=== PATIENT | female | born 1980 ===

== ENCOUNTER 2025-01-17 15:34 | Outpatient (CLI) | payer OTHER, SELFPAY ==
--- NOTE | 2025-01-17 15:07 | DI.RAD_ITS ---
Exam(s) XR KNEE LT 2V AP,LAT EXAM: XR KNEE LT 2V AP,LAT CLINICAL HISTORY: LEFT KNEE PAIN. TECHNIQUE: 2D digital imaging was performed. COMPARISON: No exams were available for comparison FINDINGS: Two views No evidence of fracture or obvious joint effusion. No joint space narrowing. No osteophytes. Bone density is normal. There are no osseous lesions. IMPRESSION: No significant radiograph findings on these two views of the left knee. DATA REPOSITORY: RADIATION DOSE DELIVERED:
== END 2025-01-17 15:35 | disposition home or self-care (01) ==
LOC: DIORS 15:35
PROVIDERS: PCP Registered Nurse; Visit Provider Student in an Organized Health Care Education/Training Program
DX: M25.562 Pain in left knee (principal)
CPT/HCPCS: 73560

== ENCOUNTER 2025-03-14 11:15 | Outpatient (CLI) | payer OTHER, SELFPAY ==
--- NOTE | 2025-03-14 10:15 | DI.RAD_ITS ---
Exam(s) XR KNEE LT 2V AP,LAT EXAM: XR KNEE LT 2V AP,LAT CLINICAL HISTORY: F/U FRACTURE. TECHNIQUE: 2D digital imaging was performed. Three views. COMPARISON: CR XR KNEE COMPLETE MIN 4V LT from 12/08/2024 MR MR KNEE LT WO CONTRAST from 01/11/2025 CR XR KNEE LT 2V AP,LAT from 01/17/2025 FINDINGS: BONES: Stable alignment of proximal fibular fracture. No new abnormalities.. No bony destructive l esion is seen. JOINTS: The knee is normally aligned. No joint effusion is seen. SOFT TISSUE: Normal. IMPRESSION: Stable fracture alignment. DATA REPOSITORY: RADIATION DOSE DELIVERED:
== END 2025-03-14 11:16 | disposition home or self-care (01) ==
LOC: DIORS 11:15
PROVIDERS: PCP Registered Nurse; Visit Provider Student in an Organized Health Care Education/Training Program
DX: S82.832D Other fracture of upper and lower end of left fibula, subsequent encounter for closed fracture with routine healing (principal); X58.XXXD Exposure to other specified factors, subsequent encounter
CPT/HCPCS: 73560

== ENCOUNTER 2025-08-08 14:50 | Outpatient (CLI) | payer OTHER, SELFPAY ==
--- NOTE | 2025-08-08 13:15 | DI.RAD_ITS ---
Exam(s) XR SHOULDER LT COMPLETE 2+V EXAM: XR SHOULDER LT COMPLETE 2+V CLINICAL HISTORY: LEFT SHOULDER PAIN. TECHNIQUE: 2D digital imaging was performed. Two views. COMPARISON: No exams were available for comparison FINDINGS: BONES: No acute fracture is present. No bony destructive lesion is seen. JOINTS: No dislocation present. Glenohumeral joint space is maintained. No significant periarticular spurring. AC joint also shows no significant spurring. SOFT TISSUE: Normal. IMPRESSION: Unremarkable radiographs of the left shoulder. DATA REPOSITORY: RADIATION DOSE DELIVERED:
== END 2025-08-08 14:51 | disposition home or self-care (01) ==
LOC: DIORS 14:51
PROVIDERS: PCP Registered Nurse; Visit Provider Student in an Organized Health Care Education/Training Program
DX: M25.512 Pain in left shoulder (principal)
CPT/HCPCS: 73030

== ENCOUNTER 2025-09-08 03:19 | Outpatient (CLI) | payer OTHER, SELFPAY ==
--- NOTE | 2025-09-08 12:45 | DI.MRI_ITS ---
Exam(s) MR UPPER JOINT LT WO EXAM: MR UPPER JOINT LT WO CLINICAL HISTORY: L SHOULDER PAIN,INJURY OF LT AC JOINT,S49.92XA. TECHNIQUE: Multiplanar multisequence MRI was performed. COMPARISON: CR XR SHOULDER LT COMPLETE 2+V from 08/08/2025 FINDINGS: BONES: There is no fracture or contusion pattern. JOINTS: There are mild degenerative changes seen at the acromioclavicular joint. There is no evidence of a fracture. There is mild edema seen around the AC joint and ligament sprain may be considered. The glenohumeral joint is normal. TENDONS: Supraspinatus: Unremarkable. Infraspinatus: Unremarkable. Subscapularis: Unremarkable. Teres Minor: Unremarkable. Biceps and [place]: Unremarkable. MUSCLES: Unremarkable. GLENOID LABRUM: Unremarkable on this noncontrast examination. SOFT TISSUES: Unremarkable. LIGAMENTS: Unremarkable. OTHER: Subacromial and subdeltoid bursae are unremarkable. IMPRESSION: 1. There is no evidence of a rotator cuff or labral tear on this noncontrast examination. 2. Mild edema seen in and around the AC joint. The ligament appears intact but sprain may be considered. DATA REPOSITORY:
== END 2025-09-08 03:39 ==
LOC: DI 03:19
PROVIDERS: PCP Registered Nurse; Visit Provider Student in an Organized Health Care Education/Training Program
DX: S49.92XA Unspecified injury of left shoulder and upper arm, initial encounter (principal); M19.012 Primary osteoarthritis, left shoulder
CPT/HCPCS: 73221

== ENCOUNTER → 2025-10-11 01:23 | Outpatient (CLI) | payer OTHER, SELFPAY ==
--- NOTE | 2025-10-11 07:00 | DI.MRI_ITS ---
Exam(s) MR LOWER JOINT LT WO EXAM: MR LOWER JOINT LT WO CLINICAL HISTORY: L KNEE PAIN,SPRAIN ANT CRUCIATE LIGAMENT,FX PROX FIBULA TECHNIQUE: Multiplanar multisequence MRI of the knee was performed. COMPARISON: CR XR KNEE COMPLETE MIN 4V LT from 12/08/2024 MR MR KNEE LT WO CONTRAST from 01/11/2025 CR XR KNEE LT 2V AP,LAT from 01/17/2025 CR XR KNEE LT 2V AP,LAT from 03/14/2025 FINDINGS: EFFUSION: There is small amount of increased joint fluid. There is no Acuña cyst in the popliteal fossa and there are no loose intra-articular bodies evident. MARROW:No evidence of fracture or bone contusion. There has been complete healing of the previously present comminuted fracture in the fibular head and neck seen on the MRI scan of December 2024. The fibular styloid is intact. PATELLOFEMORAL COMPARTMENT: The quadriceps tendon is intact. The patellar ligament is intact. Allowing for the amount of motion artifact, there is no significant thinning of the retropatellar cartilage. No significant chondromalacia at this level and no abnormal intraosseous signal evident in the patella.,There is no intraosseous signal to suggest recent patellar dislocation. There are no patellar retinacular tears. CRUCIATE LIGAMENTS: There is some signal abnormality in the more posterior of the 2 fascicles of the ACL and either related to some partial tearing or degenerative change. The more anterior of the 2 fascicles of the ACL is intact.There is mild signal abnormality in the most superior aspect of the post erior cruciate ligament at its attachment to the inner aspect of the medial femoral condyle, however, there is no high-grade tear of this structure. MEDIAL COMPARTMENT/MEDIAL MENISCUS: There are no tears of the medial meniscus evident.. There are no chondral defects, osteochondral defects, subarticular marrow edema, nor osteophytes evident. MEDIAL COLLATERAL LIGAMENT: There is a single tiny focus of fluid signal between the 2 layers of the medial collateral ligament possibly indicating sprain signal.. However, there is no high-grade tear of this structure. Also no tear of the medial patellar retinaculum. LATERAL COMPARTMENT/LATERAL MENISCUS: There is no evidence of lateral meniscal tear.There are no chondral defects, osteochondral defects, subarticular marrow edema, nor osteophytes evident. ILIOTIBIAL BAND: Intact LATERAL COLLATERAL LIGAMENT COMPLEX: The fibular collateral ligament is intact. The biceps femoris tendon is intact.Popliteus muscle and tendon are intact. There is no significant abnormal signal at the attachment of the biceps femoris tendon and fibular collateral ligament to the previously fractured fibular head. IMPRESSION: 1. Compared to the prior outside MRI scan of 01/11/2025 there has been complete healing of the previously described comminuted but nondisplaced fracture of the fibular head and neck. There is no significant signal abnormality at the attachment of the biceps femora wrists tendon and fibular collateral ligament components of the lateral collateral ligament complex which insert at this level on the fibular head styloid. 2. There are no meniscal tears evident. 3. Sprain signal is again noted in the anterior cruciate ligament predominately involving the more posterior of the 2 fascicles of this structure. There is no full-thickness tear of the ACL. There is also mild sprain signal noted in the superior aspect of the posterior cruciate ligament but no high-grade tear of this structure. 4. No significant osteoarthritic degenerative changes evident in the knee. DATA REPOSITORY:
== END ==
LOC: DI 01:23
PROVIDERS: PCP Registered Nurse; Visit Provider Student in an Organized Health Care Education/Training Program
DX: S83.512A Sprain of anterior cruciate ligament of left knee, initial encounter (principal); S82.832A Other fracture of upper and lower end of left fibula, initial encounter for closed fracture
CPT/HCPCS: 73721

== ENCOUNTER 2025-10-24 11:11 | Outpatient (CLI) | payer OTHER, SELFPAY ==
--- NOTE | 2025-10-24 08:41 | DI.RAD_ITS ---
Exam(s) XR KNEE RT 3V AP,LAT,VANCE EXAM: XR KNEE RT 3V AP,LAT,VANCE CLINICAL HISTORY: RIGHT KNEE PAIN. TECHNIQUE: 2D digital imaging was performed of the right knee. Three views obtained. Merchant, AP and lateral views were obtained. COMPARISON: There are no priors for comparison. FINDINGS: BONES: No acute fracture is present. No bony destructive lesion is seen. JOINTS: The knee is normally aligned. No joint effusion is seen. SOFT TISSUE: Normal. IMPRESSION: Unremarkable radiographs of the right knee. DATA REPOSITORY: RADIATION DOSE DELIVERED:
== END 2025-10-24 11:12 | disposition home or self-care (01) ==
LOC: DIORS 11:12
PROVIDERS: PCP Registered Nurse; Visit Provider Student in an Organized Health Care Education/Training Program
DX: M25.561 Pain in right knee (principal)
CPT/HCPCS: 73562